=== PATIENT | female | born 1975 | race Native Hawaiian/Other Pacific Islander ===

== ENCOUNTER 2017-09-30 22:42 | Emergency (ER) | payer SELFPAY ==
[~2017-09-30] VITALS: Ht 160 cm; Wt 92.0 kg
[~2017-09-30 22:42] MED LIST: AMOX500T PO; CAPT25TA2 PO; CORTI10A LEFT EAR; DICL75TA PO
[2017-09-30 22:52] VITALS: BP 140/70; PULSE 83; RESP 16; TEMP 99.1; O2SAT 97
--- NOTE | 2017-09-30 23:16 | PD ---
HPI Chief Complaint: ENT Complaint Time Seen by Provider: 23:11 Travel History International Travel<30 days: No Contact w/Intl Traveler<30days: No Traveled to known affect area: No History of Present Illness HPI 42-year-old female presents to emergency department for evaluation of persistent and worsening left ear pain 1 month. Patient was seen and evaluated in August, diagnosed with left ear pain and started on amoxicillin. She states she took this as prescribed but nothing up better. She states the pain is only gotten worse and radiates to her posterior scalp. She states behind her ear is very tender to touch. She also reports that her right ear has begun to be painful. She denies any fever or chills. No cough or other upper respiratory symptoms. Patient states the pain is a 10 out of 10, constant , throbbing. She has no other symptoms to report. PFSH Past Medical History Asthma: Yes Cancer: Yes (FIGO TYPE 2) Diminished Hearing: No Hypertension: Yes ?: Not Past Surgical History Gynecologic Surgery: Yes (complete hysterectomy) Hysterectomy: Yes (2013 FULL) Social History Alcohol Use: No Tobacco Use: Yes Substance Use: No Allergies-Medications (Allergen,Severity, Reaction): Coded Allergies: No Known Allergies (Unverified , 09/30/17) Reported Meds & Prescriptions Reported Meds & Active Scripts Active Augmentin (Amoxicillin-Clavulanate) 875-125 Mg Tab 1 Tab PO BID Diclofenac Sodium DR (Diclofenac Sodium) 75 Mg Tabdr 75 Mg PO BID Gmqzxlbq-Kxwlhwzma-UD Otic Drops (Neomycin/Polymyxin/Hydrocortisone) 1 % Soln 4 Drop LEFT EAR QID Amoxicillin 500 Mg Tab 500 Mg PO TID Review of Systems Except as stated in HPI: all other systems reviewed are Neg Physical Exam Narrative GENERAL: Well-nourished, well-developed male patient in no acute distress. SKIN: Focused skin assessment warm/dry. HEAD: Normocephalic. Tenderness elicited palpation behind the left ear. EARS: Bilateral pinnae and external canals appear within normal limits. The right tympanic membranes without erythema, dullness or perforation. Left tympanic membrane is bulging with a moderate sized purulent effusion. Mild erythema. EYES: No scleral icterus. No injection or drainage. He does have mild drooping of the left superior eyelid. ENT: Mucosa pink and moist. No erythema or exudates. No uvular edema. No uvular , palatal, or tonsillar deviation. Airway patent. Nasal turbinates appear normal without nasal blood, purulent drainage or septal hematoma. NECK: Supple, trachea midline. No JVD or lymphadenopathy. CARDIOVASCULAR: Regular rate and rhythm without murmurs, gallops, or rubs. RESPIRATORY: Breath sounds equal bilaterally. No accessory muscle use. GASTROINTESTINAL: Abdomen soft, non-tender, nondistended. MUSCULOSKELETAL: No cyanosis, or edema. BACK: Nontender without obvious deformity. No CVA tenderness. Data Data Last Documented VS Vital Signs Date Time Temp Pulse Resp B/P (MAP) Pulse Ox O2 Delivery O2 Flow Rate FiO2 10/01/17 00:43 09/30/17 22:52 99.1 83 16 97 Room Air Orders Orders Iv Access Insert/Monitor (09/30/17 23:23) Complete Blood Count With Diff (09/30/17 23:23) Basic Metabolic Panel (Bmp) (09/30/17 23:23) Ketorolac Inj (Toradol Inj) (09/30/17 23:30) Diphenhydramine Inj (Benadryl Inj) (09/30/17 23:30) Metoclopramide Inj (Reglan Inj) (09/30/17 23:30) Sodium Chlor 0.9% 1000 Ml Inj (Ns 1000 M (09/30/17 23:30) Influenzae A/B Antigen (09/30/17 23:23) Ct Brain W/O Iv Contrast(Rout) (09/30/17 ) Ed Discharge Order (10/01/17 00:37) Labs Laboratory Tests Test 09/30/17 23:30 White Blood Count 11.3 TH/MM3 Red Blood Count 4.44 MIL/MM3 Hemoglobin 9.1 GM/DL Hematocrit 29.5 % Mean Corpuscular Volume 66.4 FL Mean Corpuscular Hemoglobin 20.4 PG Mean Corpuscular Hemoglobin Concent 30.7 % Red Cell Distribution Width 18.0 % Platelet Count 508 TH/MM3 Mean Platelet Volume 7.1 FL Neutrophils (%) (Auto) 68.2 % Lymphocytes (%) (Auto) 20.5 % Monocytes (%) (Auto) 9.3 % Eosinophils (%) (Auto) 1.4 % Basophils (%) (Auto) 0.6 % Neutrophils # (Auto) 7.7 TH/MM3 Lymphocytes # (Auto) 2.3 TH/MM3 Monocytes # (Auto) 1.0 TH/MM3 Eosinophils # (Auto) 0.2 TH/MM3 Basophils # (Auto) 0.1 TH/MM3 CBC Comment DIFF FINAL Differential Comment Blood Urea Nitrogen 13 MG/DL Creatinine 0.64 MG/DL Random Glucose 146 MG/DL Calcium Level 8.4 MG/DL Sodium Level 141 MEQ/L Potassium Level 4.1 MEQ/L Chloride Level 106 MEQ/L Carbon Dioxide Level 29.0 MEQ/L Anion Gap 6 MEQ/L Estimat Glomerular Filtration Rate 101 ML/MIN MDM Medical Decision Making Medical Screen Exam Complete: Yes Emergency Medical Condition: Yes Medical Record Reviewed: Yes Differential Diagnosis Otitis media versus otitis externa versus mastoiditis versus allergies versus influenza Narrative Course 42-year-old female presents to the emergency department for evaluation of left ear pain. Patient appears without distress. She has had tenderness to palpation of the posterior left ear. CT imaging of the brain identifies no mastoiditis and no intracranial abnormality. Patient does have a moderate size purulent effusion on the left. She'll be started on Augmentin. I have encouraged follow-up with primary care provider and to seek ear nose and throat evaluation. She verbalizes understanding and will return immediately with any acute worsening of symptoms. Diagnosis Primary Impression: Otitis media follow-up, not resolved Qualified Codes: H66.92 - Otitis media, unspecified, left ear Referrals: Ear / Nose / Throat Specialist Primary Care Physician Patient Instructions: Ear Infection (ED), General Instructions Additional Instructions: Follow-up with her primary care provider Tylenol or ibuprofen as directed on the package as needed for fever and/or pain Return immediately to the emergency department with any acute worsening of symptoms Med/Other Pt SpecificInfo: Prescription(s) given Scripts Amoxicillin-Clavulanate (Augmentin) 875-125 Mg Tab 1 TAB PO BID for Infection, #20 TAB 0 Refills Prov: Maria Luisa Roque 10/01/17 Disposition: 01 DISCHARGE HOME Condition: Stable Maria Luisa Roque Sep 30, 2017 23:16
[2017-09-30] MEDS ORDERED: diphenhydrAMINE HCL 50 MG/ML VIAL IV PUSH ONE (23:30)
[2017-09-30] MEDS ORDERED: KETOROLAC TROMETHAMINE 30 MG/ML (IVP) VIAL IV PUSH ONE (23:30)
[2017-09-30] MEDS ORDERED: METOCLOPRAMIDE HCL 10 MG/2 ML VIAL IV PUSH ONE (23:30)
[2017-09-30] MEDS ORDERED: SODIUM CHLOR 0.9% 1000 ML INJ 1,000 ML IV ONE (23:30)
[2017-09-30 23:54] LABS: CALCIUM 8.4 MG/DL (8.5-10.1); CREATININE 0.64 MG/DL (0.50-1.00)
[2017-09-30 23:56] LABS: AUTOMATED NEUTROPHIL # 7.7 TH/MM3 (1.8-7.7); BASOPHIL # 0.1 TH/MM3 (0-0.2); BASOPHIL % 0.6 % (0.0-2.0); EOSINOPHIL # 0.2 TH/MM3 (0-0.4); EOSINOPHIL % 1.4 % (0.0-4.0); HEMATOCRIT 29.5 % (35.0-46.0); HEMOGLOBIN 9.1 GM/DL (11.6-15.3); LYMPH % 20.5 % (9.0-44.0); LYMPHOCYTE # 2.3 TH/MM3 (1.0-4.8); MEAN CELL VOLUME 66.4 FL (80.0-100.0); MEAN CORPUSCULAR HEMOGLOBIN 20.4 PG (27.0-34.0); MEAN CORPUSCULAR HGB CONC 30.7 % (32.0-36.0); MEAN PLATELET VOLUME 7.1 FL (7.0-11.0); MONO % 9.3 % (0.0-8.0); NEUT % 68.2 % (16.0-70.0); PLATELET COUNT 508 TH/MM3 (150-450); RED BLOOD COUNT 4.44 MIL/MM3 (4.00-5.30); WHITE BLOOD COUNT 11.3 TH/MM3 (4.0-11.0)
--- NOTE | 2017-10-01 00:28 | RADRPT ---
EXAM DATE/TIME: 10/01/2017 00:04 [facility] COMPARISON: No previous studies available for comparison. INDICATIONS : Headaches. Evaluate for mastoiditis. RADIATION DOSE: 34.94 CTDIvol (mGy) MEDICAL HISTORY : None SURGICAL HISTORY : None. ENCOUNTER: Initial ACUITY: 1 day PAIN SCALE: 7/10 LOCATION: Bilateral cranial TECHNIQUE: Multiple contiguous axial images were obtained of the head. Using automated exposure control and adj ustment of the mA and/or kV according to patient size, radiation dose was kept as low as reasonably a chievable to obtain optimal diagnostic quality images. DICOM format image data is available electro nically for review and comparison. FINDINGS: CEREBRUM: The ventricles are normal for age. No evidence of midline shift, mass lesion, hemorrhage or acute in farction. No extra-axial fluid collections are seen. POSTERIOR FOSSA: The cerebellum and brainstem are intact. The 4th ventricle is midline. The cerebellopontine angle i s unremarkable. EXTRACRANIAL: The visualized portion of the orbits is intact. SKULL: The calvaria is intact. No evidence of skull fracture. CONCLUSION: No acute disease. The mastoids are well aerated. Baldomero Cruz MD on October 01, 2017 at 0:24 Board Certified Radiologist. This report was verified electronically.
[2017-10-01] MEDS ORDERED: AUGM875T3 PO (00:39)
[2017-10-07] MEDS ORDERED: CAPT25TA2 PO (17:57)
[2017-10-07] MEDS ORDERED: FAMO1TAB30 PO (18:33)
[2017-10-07] MEDS ORDERED: CEPH-460 PO (19:16)
== END 2017-10-01 01:00 | disposition home or self-care (01) ==
LOC: NEPD 22:42 → MERGE 22:42 → NEPD 10-01 01:00
DX: H66.92 Otitis media, unspecified, left ear (principal); J45.909 Unspecified asthma, uncomplicated; I10 Essential (primary) hypertension; Z72.0 Tobacco use
CPT/HCPCS: 70450; 80048; 85025; 87804; 96361; 96374; 99285; J1200; J7030

== ENCOUNTER 2017-10-07 17:33 | Emergency (ER) | payer SELFPAY ==
[2017-10-07] MEDS: LIDOCAINE VISCOUS 2% SOLN 15 ML UDC SWISH-SWAL (18:27)
[2017-10-07] MEDS: ALUMINUM/MAGNESIUM/SIMETH 30 ML CUP PO (18:40)
[2017-10-07] MEDS: FAMOTIDINE 20 MG TAB PO (18:40)
== END 2017-10-07 20:13 | disposition home or self-care (01) ==
LOC: NEPE 17:33
DX: T36.0X5A Adverse effect of penicillins, initial encounter (principal); R10.9 Unspecified abdominal pain; R07.9 Chest pain, unspecified; H93.19 Tinnitus, unspecified ear; J45.909 Unspecified asthma, uncomplicated; I10 Essential (primary) hypertension; Z87.891 Personal history of nicotine dependence
CPT/HCPCS: 99284

== ENCOUNTER 2018-03-06 21:06 | Emergency (ER) | payer SELFPAY ==
[~2018-03-06] VITALS: Ht 165.1 cm; Wt 92.0 kg
[~2018-03-06 21:06] MED LIST changes: -AMOX500T PO; +AUGM875T3 PO; +CEPH-460 PO; -CORTI10A LEFT EAR; -DICL75TA PO; +FAMO1TAB30 PO
[2018-03-06 21:33] VITALS: BP 143/96; PULSE 100; RESP 16; TEMP 99.2; O2SAT 98
--- NOTE | 2018-03-06 22:00 | PD ---
HPI Chief Complaint: Headache Time Seen by Provider: 21:58 Travel History International Travel<30 days: No Contact w/Intl Traveler<30days: No Traveled to known affect area: No History of Present Illness HPI Patient comes in, complaining of left-sided headache, 5 out of 10 in intensity, sometimes throbbing or sharp in nature. Nonradiating and associated with left ear fullness and sometimes pain.... Patient denies any alleviating or aggravating factors. Patient denies any associated factors such as neck stiffness, no rash, no fever No nondrug allergies Past medical history significant for hypertension, asthma, complete hysterectomy , quit smoking cigarettes in 2016 [facility] Past Medical History Asthma: Yes Cancer: Yes (FIGO TYPE 2) Cardiovascular Problems: Yes (HTN) Diminished Hearing: No Hypertension: Yes Respiratory: Yes (Asthma) ?: Not Tubal Ligation: Yes Past Surgical History Gynecologic Surgery: Yes (complete hysterectomy) Hysterectomy: Yes Social History Alcohol Use: No Tobacco Use: Yes (july 2017 quit) Substance Use: No Allergies-Medications (Allergen,Severity, Reaction): Coded Allergies: No Known Allergies (Unverified , 08/24/16) Reported Meds & Prescriptions Reported Meds & Active Scripts Active Reported Captopril 25 Mg Tab 25 Mg PO TIDAC Take 1 hr before meals. Review of Systems General / Constitutional: No: Fever Eyes: No: Visual changes HENT: Positive: Headaches, Earache Cardiovascular: No: Chest Pain or Discomfort Respiratory: No: Shortness of Breath Gastrointestinal: No: Abdominal Pain Genitourinary: No: Dysuria Musculoskeletal: No: Pain Skin: No Rash Neurologic: No: Weakness Psychiatric: No: Depression Endocrine: No: Polydipsia Hematologic/Lymphatic: No: Easy Bruising Physical Exam Narrative GENERAL: SKIN: Warm and dry. HEAD: Atraumatic. Normocephalic. EYES: Pupils equal and round. No scleral icterus. No injection or drainage. ENT: No nasal bleeding or discharge. Mucous membranes pink and moist. Left TM is edematous/erythematous/bulging with loss of right reflex, normal external auditory canal. Tenderness to percussion over mid forehead NECK: Trachea midline. No JVD. CARDIOVASCULAR: Regular rate and rhythm. RESPIRATORY: No accessory muscle use. Clear to auscultation. Breath sounds equal bilaterally. GASTROINTESTINAL: Abdomen soft, non-tender, nondistended. MUSCULOSKELETAL: Extremities without clubbing, cyanosis, or edema. No obvious deformities. NEUROLOGICAL: Awake and alert. No obvious cranial nerve deficits. Motor grossly within normal limits. Five out of 5 muscle strength in the arms and legs. Normal speech. PSYCHIATRIC: Appropriate mood and affect; insight and judgment normal. Data Data Last Documented VS Vital Signs Date Time Temp Pulse Resp B/P (MAP) Pulse Ox O2 Delivery O2 Flow Rate FiO2 03/06/18 22:09 87 16 124/68 (86) 98 Room Air 03/06/18 21:[address] Brain W/O Iv Contrast(Rout) (03/06/18 22:18) Amoxicil-Clavulanate (Augmentin) (03/07/18 00:00) MDM Medical Decision Making Medical Screen Exam Complete: Yes Emergency Medical Condition: Yes Medical Record Reviewed: Yes Differential Diagnosis Intra-cranial hemorrhage versus sinusitis versus tension headache Narrative Course CT negative for intracranial hemorrhage Diagnosis Primary Impression: Left otitis media Patient Instructions: Ear Infection (ED), General Instructions, Sinusitis (GEN) Scripts Amoxicillin-Clavulanate (Augmentin) 875-125 Mg Tab 1 TAB PO BID for Infection for 10 Days, #20 TAB 0 Refills Prov: iMc Baker MD 03/06/18 Disposition: 01 DISCHARGE HOME Condition: Stable Mic Baker MD Mar 06, 2018 22:00
[2018-03-06 22:09] VITALS: BP 124/68; PULSE 87; RESP 16; O2SAT 98
--- NOTE | 2018-03-06 23:34 | RADRPT ---
EXAM DATE: 03/06/2018 11:21 PM EDT AGE/SEX: 43 years / Female INDICATIONS: Cephalgia. CLINICAL DATA: This is the patient's initial encounter. Patient reports that signs and symptoms have been present for 1 month and indicates a pain score of 10/10. MEDICAL/SURGICAL HISTORY: Hypertension. Hysterectomy. RADIATION DOSE: 56.35 CTDI (mGy) COMPARISON: [facility] [place] BRAIN [place]/O CONTRAST, 10/01/2017. . TECHNIQUE: CT of the head without contrast. Using automated exposure control and adjustment of the mA and/or kV according to patient size, radiation dose was kept as low as reasonably achievable to ob tain optimal diagnostic quality images. DICOM format image data is available electronically for revi ew and comparison. FINDINGS: Cerebrum: The ventricles are normal for age. No evidence of midline shift, mass lesion, hemorrhage or acute infarction. No extraaxial fluid collections are seen. Posterior Fossa: The cerebellum and brainstem are intact. The 4th ventricle is midline. The cerebe llopontine angle is unremarkable. Extracranial: The visualized portion of the orbits is intact. Skull: The calvaria is intact. No evidence of skull fracture. CONCLUSION: 1. Negative CT Head non contrast. Electronically signed by: Dylan Figueredo MD 03/06/2018 11:32 PM EDT
[2018-03-06] MEDS ORDERED: AUGM875T3 PO (23:50)
[2018-03-07] MEDS ORDERED: AMOXICILLIN/CLAVULANATE K 875 MG TAB PO ONE
[2018-03-07] MEDS ORDERED: traMADol HCL 50 MG TAB PO ONE (00:15)
[2018-03-07] MEDS ORDERED: CELE1CAP6 PO (00:22)
== END 2018-03-07 00:41 | disposition home or self-care (01) ==
LOC: NEPC 21:06
DX: H66.92 Otitis media, unspecified, left ear (principal); R51 Headache; I10 Essential (primary) hypertension; J45.909 Unspecified asthma, uncomplicated; Z87.891 Personal history of nicotine dependence
CPT/HCPCS: 70450; 99283

== ENCOUNTER 2018-04-24 01:05 | Observation (INO) ==
[2018-04-24 04:36] LABS: Alanine Aminotransferase 13 U/L (10-53); Albumin 2.2 g/dL (3.4-5.0); Anion Gap 6 meq/L (5-15); Aspartate Aminotransferase 6 U/L (15-37); Blood Urea Nitrogen 11 mg/dL (7-18); Calcium 8.5 mg/dL (8.5-10.1); Carbon Dioxide 29.3 meq/L (21.0-32.0); Chloride 104 meq/L (98-107); Glomerular Filtration Rate Greater Than 89 mL/min (>89); Glucose,Random 141 mg/dL (74-106); Sodium 139 meq/L (136-145)
[2018-04-24 04:39] LABS: Alkaline Phosphatase 116 U/L (45-117); Total Protein 7.6 g/dL (6.4-8.2)
[2018-04-24 04:46] LABS: Hematocrit 21.4 % (35.0-46.0); Hemoglobin 6.1 gm/dL (11.6-15.3); Mean Corpuscular Hemoglobin 17.9 pg (27.0-34.0); Mean Corpuscular Volume 62.8 fL (80.0-100.0); Mean Platelet Volume 6.9 fL (7.0-11.0); Platelet Count 532 th/mm3 (150-450); Red Cell Distribution Width 20.9 % (11.6-17.2); White Blood Count 11.3 th/mm3 (4.0-11.0)
[2018-04-24 04:50] LABS: Mean Corpuscular HGB Conc 28.6 % (32.0-36.0)
--- NOTE | 2018-04-24 05:19 | ED ---
HPI General Chief complaint: Head Injury Stated complaint: Ear Pain/Head Pain Time Seen by Provider: 04/24/18 04:51 Source: patient Mode of arrival: ambulatory Limitations: no limitations History of Present Illness HPI narrative: 43-year-old female presents emergency department for evaluation of bilateral ear pain, headache, shortness of breath and fatigue. Patient states that she has had a history of hypertension, uterine cancer with hysterectomy, and anemia in the past. She had been recently seen by ENT who performed direct visualization of her sinuses and told her he did not see anything. She followed up here in the ER had a CAT scan done and was diagnosed with otitis media and sinusitis and placed on a course of antibiotics. She states that she does not feel significantly improved. She states that she stopped taking her captopril because she felt her blood pressure is better. She also was on iron but has not taken it in over a year. She states that she has had subjective fever at home, persistent headache and ear pain. She denies any chest pain. No cough or sputum production. No nausea vomiting. No abdominal pain or diarrhea. She denies any dysuria, vaginal discharge or abnormal vaginal bleeding. No rectal bleeding. Related Data Home Medications Medication Instructions Recorded Confirmed captopril 25 mg PO BID 04/06/18 04/06/18 Allergies Allergy/AdvReac Type Severity Reaction Status Date / Time No Known Allergies Allergy Verified 04/24/18 01:14 Review of Systems ROS: all other systems reviewed are negative [facility] Medical History Medical History H/O: hysterectomy (Acute) HTN (hypertension) (Acute) Uterine cancer (Acute) Social History Social History Substance History: No History of Abuse Second Hand Smoke Exposure: No Smoking Status: Never smoker How Often Do You Have a Drink Containing Alcohol: Never Immunization History Tetanus Immunization: Unsure Hx Influenza Vaccine This Season: No Exam Narrative Exam Narrative: GENERAL: Well-developed, well-nourished in no apparent distress. Nontoxic appearing. HEAD: Normocephalic, atraumatic. EYES: Pupils equal round and reactive. Extraocular motions intact. No scleral icterus. No injection or drainage. ENT: Nose clear. Throat without erythema, tonsillar hypertrophy or exudate. Uvula midline. Airway patent. NECK: Trachea midline. Supple, nontender, moves head freely. No central bony tenderness or spasm. CARDIOVASCULAR: Regular rate and rhythm without murmurs, gallops, or rubs. RESPIRATORY: Clear to auscultation. Breath sounds equal bilaterally. No wheezes , rales, or rhonchi. GASTROINTESTINAL: Abdomen soft, non-tender, nondistended. No hepato-splenomegaly , or palpable masses. No guarding. EXTREMITIES: No clubbing, cyanosis, or edema. No joint tenderness. BACK: Nontender without deformity. No flank tenderness. NEUROLOGICAL: Awake, alert and oriented x 3 .Cranial nerves grossly intact. Motor and sensory grossly within normal limits. Normal speech. Rectal: Negative for blood. Positive external hemorrhoid without active bleeding. Patient's exam performed in the presence of Nga the nurse. Course Initial Documented Vital Signs Temperature 98.5 F 04/24/18 01:14 Pulse Rate 114 H 04/24/18 01:14 Respiratory Rate 18 04/24/18 01:14 Blood Pressure 133/58 L 04/24/18 01:14 Pulse Oximetry 99 04/24/18 01:14 Last Documented Vital Signs Temperature 98.5 F 04/24/18 01:14 Pulse Rate 114 H 04/24/18 01:14 Respiratory Rate 18 04/24/18 01:14 Blood Pressure 133/58 L 04/24/18 01:14 Pulse Oximetry 99 04/24/18 01:14 Medical Decision Making MDM Narrative Medical decision making narrative: Routine laboratory tests including CBC, chemistry, chest x-ray, type and screen have been performed. Patient's CBC reveals a hemoglobin of 6.1. This is a drop of 3 g of hemoglobin in the last several months. We will type and cross for 2 units due to her subjective shortness of breath, dizziness and weakness. I see no evidence of hemorrhage. I suspect this is secondary to her chronic anemia and not compliant with her iron pills. I discussed the case with Dr. Galan who is agreed to place the patient on observation status for her blood transfusion for her symptomatic anemia. I do not see any other indication for testing today. I reviewed her prior CAT scan shows no acute intracranial process from her last ER visit. Differential Diagnosis Differential Diagnosis: Otitis media, sinusitis, pneumonia, electrolyte abnormality, anemia, GI bleed Lab Data Result diagrams: 04/24/18 03:50 04/24/18 03:50 Lab Results 04/24/18 04/24/18 Range/Units 03:50 03:50 WBC 11.3 H (4.0-11.0) th/mm3 RBC 3.40 L (4.00-5.30) mil/mm3 Hgb 6.1 L* (11.6-15.3) gm/dL Hct 21.4 L (35.0-46.0) % MCV 62.8 L (80.0-100.0) fL MCH 17.9 L (27.0-34.0) pg MCHC 28.6 L (32.0-36.0) % RDW 20.9 H (11.6-17.2) % Plt Count 532 H (150-450) th/mm3 MPV 6.9 L (7.0-11.0) fL Sodium 139 (136-145) meq/L Potassium 4.0 (3.5-5.1) meq/L Chloride 104 (98-107) meq/L Carbon Dioxide 29.3 (21.0-32.0) meq/L Anion Gap 6 (5-15) meq/L BUN 11 (7-18) mg/dL Creatinine 0.63 (0.50-1.00) mg/dL Estimated GFR Greater than 89 (>89) mL/min Random Glucose 141 H (74-106) mg/dL Calcium 8.5 (8.5-10.1) mg/dL Total Bilirubin 0.4 (0.2-1.0) mg/dL AST 6 L (15-37) U/L ALT 13 (10-53) U/L Alkaline Phosphatase 116 (45-117) U/L Total Protein 7.6 (6.4-8.2) g/dL Albumin 2.2 L (3.4-5.0) g/dL Imaging Data Radiologist's impression: Chest X-Ray 04/24/18 00:00 CONCLUSION: Negative examination. Discharge Plan Discharge Disposition Patient Disposition: 30 Still Patient Discharge Condition Condition: Stable Physicians Team ED Provider: Monik Montesinos ED Midlevel Provider: Martin Borrero Primary Care Provider: Primary Care Samantha Church Rxs /Orders / Referrals /Forms Prescriptions: No Action captopril 25 mg Tablet 25 mg PO BID RF: 0 Status ED Status: With Doctor
--- NOTE | 2018-04-24 05:44 | XR ---
EXAM DATE: 04/24/2018 5:05 AM EDT AGE/SEX: 43 years / Female INDICATIONS: Shortness of breath. CLINICAL DATA: This is the patient's initial encounter. Patient reports that signs and symptoms have been present for 1 day and indicates a pain score of 0/10. MEDICAL/SURGICAL HISTORY: Hypertension. None. COMPARISON: [facility] [place], CHEST SINGLE AP, 08/24/2016. . FINDINGS: A single AP view of the chest demonstrates the lungs to be symmetrically aerated without evidence of mass, infiltrate or effusion. The cardiomediastinal contours are unremarkable. Osseous structures a re intact. CONCLUSION: Negative examination. Electronically signed by: Michael Kirby MD 04/24/2018 5:43 AM EDT
[2018-04-24] MEDS ORDERED: Acetaminophen 325 MG Tablet PO PRN (05:57)
[2018-04-24] MEDS ORDERED: Temazepam 15 MG Capsule PO PRN (05:57)
[2018-04-24] MEDS ORDERED: Bisacodyl 10 MG Supp RECTAL PRN (05:57)
[2018-04-24] MEDS ORDERED: Sodium Chlor 0.9% Inj 250 ML IV.SIG SCH ×2 (06:00→09:00)
[2018-04-24 09:54] LABS: Hematocrit 22.4 % (35.0-46.0)
[2018-04-24 10:09] LABS: Hemoglobin 6.6 gm/dL (11.6-15.3)
[2018-04-24] MEDS: Senna/Docusate Sodium 8.6/50 MG Tablet PO SCH ×2 (11:42→21:34)
[2018-04-24] MEDS: Acetaminophen 500 MG Tablet PO PRN (15:35)
--- NOTE | 2018-04-24 16:24 | P.HPIM ---
History of Present Illness Primary Care Physician: No Primary Care Physician Chief Complaint: shortness of breath History of Present Illness: This is a 43-year-old female with history of hypertension and uterine cancer presenting with headache, shortness of breath and fatigue. She is also complaining of bilateral ear pain. She has seen an ENT recently, status post direct visualization of her sinuses and told her that it was normal. She was then diagnosed with otitis media and sinusitis and placed on antibiotics without any improvement. She is also supposed to be on iron but has not been taking it. She also stopped taking her captopril for blood pressure. She says she just does not like taking any medications. She presented today after 1 month of progressive shortness of breath but it became so worse a day that she needed to go to the emergency department. She denies any nausea, vomiting, abdominal pain, hematochezia, melena or any bleeding episodes. She has uterine cancer status post hysterectomy and has been stable. Of note, she had a colonoscopy in 2014 and was allegedly normal. She does not take any over-the- counter NSAIDs. Family history is prominent for anemia of unknown etiology to her. Review of Systems All other pertinent systems were reviewed and are negative. FORMERLY [facility], [facility] - History History Provided By: Patient - Medical History Medical History: Medical History (Last Reviewed 04/24/18 @ 05:18 by JADIEL Adams) H/O: hysterectomy HTN (hypertension) Uterine cancer - Tobacco History Second Hand Smoke Exposure: No Smoking Status: Never smoker - Alcohol History How Often Do You Have a Drink Containing Alcohol: Never - Substance Use History Substance History: No History of Abuse - Immunization History Tetanus Immunization: Unsure Hx Influenza Vaccine This Season: No Medications and Allergies Active Medications: Active Medications Acetaminophen (Tylenol) 650 mg PO Q4H PRN PRN Reason: Temp > 100.4 Acetaminophen (Tylenol) 500 mg PO Q6H PRN PRN Reason: pain 1-10/fever Last Admin: 04/24/18 15:35 Dose: 500 mg Al Hydroxide/Mg Hydroxide (Milk Of Magnpallavi Liq) 30 ml PO Q12H PRN PRN Reason: Mild Constipation Bisacodyl (Dulcolax Supp) 10 mg RECTAL DAILY PRN PRN Reason: SEVERE CONSITIPATION Sodium Chloride (Ns Inj) 250 mls @ 15 mls/hr IV.SIG ONCE JAIRON Stop: 04/24/18 22:39 Last Admin: 04/24/18 09:44 Dose: Not Given Sodium Chloride (Ns Inj) 250 mls @ 15 mls/hr IV.SIG ONCE JAIRON Stop: 04/25/18 01:39 Last Admin: 04/24/18 09:44 Dose: 15 mls/hr Lactulose (Lactulose Liq) 30 ml PO DAILY PRN PRN Reason: SEVERE CONSITIPATION Ondansetron HCl (Zofran Inj) 4 mg IV.PUSH Q6H PRN PRN Reason: NAUSEA OR VOMITING Senna/Docusate Sodium (Nicole-Colace) 1 tab PO BID JAIRON Last Admin: 04/24/18 11:42 Dose: Not Given Sennosides (Senokot) 17.2 mg PO Q12H PRN PRN Reason: Moderate Constipation Temazepam (Restoril) 15 mg PO HS PRN PRN Reason: INSOMNIA Allergies Allergy/AdvReac Type Severity Reaction Status Date / Time No Known Allergies Allergy Verified 04/24/18 01:14 Home Medications Medication Instructions Recorded Confirmed Type captopril 25 mg PO BID 04/06/18 04/24/18 History Exam Vital signs: Vital Signs 04/24/18 01:14 04/24/18 07:11 04/24/18 09:32 Temperature 98.5 F 99.4 F 98.9 F Pulse Rate 114 H 93 H 90 Respiratory Rate 18 17 17 Blood Pressure 133/58 L 109/65 112/61 Pulse Oximetry 99 98 99 04/24/18 09:40 04/24/18 09:47 04/24/18 12:47 Temperature 98.5 F 99.1 F Pulse Rate 90 90 Respiratory Rate 16 17 Blood Pressure 112/61 130/77 Pulse Oximetry 100 100 100 04/24/18 13:24 04/24/18 13:44 Temperature 100.4 F H 100.4 F H Pulse Rate 99 H 100 H Respiratory Rate 19 17 Blood Pressure 112/67 109/64 Pulse Oximetry 100 100 Intake & Output 04/23/18 04/24/18 04/24/18 18:59 06:59 18:59 Intake Total 400 / 400 Balance 400 / 400 Weight 90 kg Intake: Intake (Blood Product) Amt 400 / 400 Rbc As-3 Leukoreduced Unit 0 / 0 [id number] Rbc As-3 Leukoreduced Unit 400 / 400 [id number] Narrative: Not in distress, well-nourished, looks stated age PERRL, pale conjunctivae, dry oral mucosa. Nose without bleeding, airway patent, oropharynx clear Supple neck Borderline tachycardic, regular rhythm, no murmurs. Clear to auscultation and symmetric bilaterally, normal respiratory effort. Normal bowel sounds, soft, non-tender, nondistended, no guarding. Extremities without clubbing, cyanosis, or edema. No rash of generalized distribution. Skin is warm and dry. AAO x3, no cranial nerve deficits, moves all 4 extremities, no focal neurologic deficits Results - Labs CBC & Chem 7: 04/24/18 08:26 04/24/18 03:50 Labs: Short CBC 04/24/18 04/24/18 Range/Units 03:50 08:26 WBC 11.3 H (4.0-11.0) th/mm3 Hgb 6.1 L* 6.6 L* (11.6-15.3) gm/dL Hct 21.4 L 22.4 L (35.0-46.0) % Plt Count 532 H (150-450) th/mm3 BMP 04/24/18 03:50 Sodium 139 Potassium 4.0 Chloride 104 Carbon Dioxide 29.3 BUN 11 Creatinine 0.63 Calcium 8.5 Liver Function 04/24/18 Range/Units 03:50 Total Bilirubin 0.4 (0.2-1.0) mg/dL AST 6 L (15-37) U/L ALT 13 (10-53) U/L Alkaline Phosphatase 116 (45-117) U/L Albumin 2.2 L (3.4-5.0) g/dL - Imaging Impressions Chest X-Ray 04/24/18 00:00 CONCLUSION: Negative examination. Caprini VTE Risk Assessment Caprini VTE Risk Assessment: Moderate/High Risk (score >= 2) VTE Pharmacological Exception Reason: Hemorrhage Caprini Risk Assessment Model: Point Value = 1 Point Value = 2 Point Value = 3 Point Value = 5 Age 41-60 Minor surgery BMI > 25 kg/m2 Swollen legs Varicose veins or History of unexplained or recurrent spontaneous Oral contraceptives or hormone replacement Sepsis (< 1 month) Serious lung disease, including pneumonia (< 1 month) Abnormal pulmonary function Acute myocardial infarction Congestive heart failure (< 1 month) History of inflammatory bowel disease Medical patient at bed rest Age 61-74 Arthroscopic surgery Major open surgery (> 45 min) Laparoscopic surgery (> 45 min) Malignancy Confined to bed (> 72 hours) Immobilizing plaster cast Central venous access Age >= 75 History of VTE Family history of VTE Factor V Leiden Prothrombin [id number] Lupus anticoagulant Anticardiolipin antibodies Elevated serum homocysteine Heparin-induced thrombocytopenia Other congenital or acquired thrombophilia Stroke (< 1 month) Elective arthroplasty Hip, pelvis, or leg fracture Acute spinal cord injury (< 1 month) Prophylaxis Regimen: Total Risk Factor Score Risk Level Prophylaxis Regimen 0-1 Low Early ambulation 2 Moderate Order ONE of the following: *Sequential Compression Device (SCD) *Heparin 5000 units SQ BID 3-4 Higher Order ONE of the following medications: *Heparin 5000 units SQ TID *Enoxaparin/Lovenox 40 mg SQ daily (WT < 150 kg, CrCl > 30 mL/min) *Enoxaparin/Lovenox 30 mg SQ daily (WT < 150 kg, CrCl > 10-29 mL/min) *Enoxaparin/Lovenox 30 mg SQ BID (WT < 150 kg, CrCl > 30 mL/min) AND/OR *Sequential Compression Device (SCD) 5 or more Highest Order ONE of the following medications: *Heparin 5000 units SQ TID (Preferred with Epidurals) *Enoxaparin/Lovenox 40 mg SQ daily (WT < 150 kg, CrCl > 30 mL/min) *Enoxaparin/Lovenox 30 mg SQ daily (WT < 150 kg, CrCl > 10-29 mL/min) *Enoxaparin/Lovenox 30 mg SQ BID (WT < 150 kg, CrCl > 30 mL/min) AND *Sequential Compression Device (SCD) Assessment and Plan - Plan This is a 43-year-old female with history of hypertension, anemia and uterine cancer presenting with shortness of breath Shortness of breath likely secondary to anemia-hemoglobin 6.1 and admission, transfuse 2 units, check hemoglobin every 12 hours, no active bleeding, no etiology. MCV 62.8, likely secondary to iron deficiency anemia, check iron panel, folic acid, vitamin B12. Rectal exam done in the ED negative for blood. If negative with no active bleeding, may follow up with GI as outpatient. Hypertension-controlled, hold off on captopril Uterine cancer-remission, status post hysterectomy DVT prophylaxis: Pharmacological prophylaxis contraindicated because of possible GI bleeding.
[2018-04-24 20:13] LABS: % Iron Saturation 8.1 % (20-50)
[2018-04-24 20:38] LABS: Folate 11.5 ng/mL (3.1-17.5)
[2018-04-25] MEDS: Acetaminophen 500 MG Tablet PO PRN ×3 (00:38→22:57)
[2018-04-25 08:05] LABS: Baso % (Auto) 0.4 % (0.0-2.0); Eos # (Auto) 0.1 th/mm3 (0.0-0.4); Eos % (Auto) 1.4 % (0.0-4.0); Hematocrit 25.3 % (35.0-46.0); Hemoglobin 7.8 gm/dL (11.6-15.3); Lymph # (Auto) 1.7 th/mm3 (1.0-4.8); Lymph % (Auto) 18.2 % (9.0-44.0); Mean Corpuscular Hemoglobin 20.4 pg (27.0-34.0); Mean Corpuscular Volume 66.3 fL (80.0-100.0); Mono # (Auto) 1.2 th/mm3 (0.0-0.9); Mono % (Auto) 13.2 % (0.0-8.0); Neut # (Auto) 6.1 th/mm3 (1.8-7.7); Neut % (Auto) 66.8 % (16.0-70.0); Platelet Count 464 th/mm3 (150-450); Red Blood Count 3.81 mil/mm3 (4.00-5.30); Red Cell Distribution Width 24.3 % (11.6-17.2); White Blood Count 9.1 th/mm3 (4.0-11.0)
[2018-04-25 08:15] LABS: Mean Corpuscular HGB Conc 30.9 % (32.0-36.0)
[2018-04-25 08:23] LABS: Anion Gap 7 meq/L (5-15); Blood Urea Nitrogen 11 mg/dL (7-18); Calcium 8.6 mg/dL (8.5-10.1); Carbon Dioxide 28.6 meq/L (21.0-32.0); Chloride 105 meq/L (98-107); Glomerular Filtration Rate Greater Than 89 mL/min (>89); Glucose,Random 116 mg/dL (74-106); Potassium 3.9 meq/L (3.5-5.1); Sodium 141 meq/L (136-145)
[2018-04-25] MEDS: Senna/Docusate Sodium 8.6/50 MG Tablet PO SCH ×2 (11:51→21:45)
--- NOTE | 2018-04-25 13:06 | P.PNIM ---
Subjective Interval history: Had an episode of dizziness this morning when going to associated from a recumbent position. No nausea or vomiting. Still feels very weak but stronger. Also complaining of bilateral ear pain, status post multiple oral antibiotics in the past. Physical Exam Vital signs: Vital Signs 04/24/18 13:24 04/24/18 13:44 04/24/18 16:46 Temperature 100.4 F H 100.4 F H 100.4 F H Pulse Rate 99 H 100 H 99 H Respiratory Rate 19 17 16 Blood Pressure 112/67 109/64 121/63 Pulse Oximetry 100 100 99 04/24/18 18:04 04/24/18 20:00 04/24/18 23:48 Temperature 100.0 F H 99.3 F 98.4 F Pulse Rate 85 85 84 Respiratory Rate 16 16 16 Blood Pressure 108/59 L 115/55 L 108/54 L Pulse Oximetry 97 99 98 04/25/18 07:52 04/25/18 11:59 Temperature 99.4 F Pulse Rate 75 88 Respiratory Rate 16 Blood Pressure 118/58 L Pulse Oximetry 96 Intake & Output 04/24/18 04/25/18 04/25/18 18:59 06:59 18:59 Intake Total 800 / 800 730 / 730 Balance 800 / 800 730 / 730 Weight 90 kg Intake: IV 250 / 250 NS Inj 250 ML @ 15 mls/hr IV. 250 / 250 SIG ONCE JAIRON Rx#:[id number] Oral 480 / 480 Intake (Blood Product) Amt 800 / 800 Rbc As-3 Leukoreduced Unit 400 / 400 [id number] Rbc As-3 Leukoreduced Unit 400 / 400 [id number] Other: # Voids 2 Date of Last Bowel Movement 04/23/18 Weight On Admission 90 kg Narrative: Not in distress, well-nourished, looks stated age PERRL, pale conjunctivae, dry oral mucosa. B ears, (+tenderness with manipulation of the tragus, (+) COL, (+) yellowish middle ear effusion Nose without bleeding, airway patent, oropharynx clear Supple neck Borderline tachycardic, regular rhythm, no murmurs. Clear to auscultation and symmetric bilaterally, normal respiratory effort. Normal bowel sounds, soft, non-tender, nondistended, no guarding. Extremities without clubbing, cyanosis, or edema. No rash of generalized distribution. Skin is warm and dry. AAO x3, no cranial nerve deficits, moves all 4 extremities, no focal neurologic deficits Results - Labs CBC & Chem 7: 04/25/18 06:00 04/25/18 06:00 Laboratory Results - last 24 hr 04/24/18 04/24/18 04/25/18 03:50 08:33 06:00 WBC 9.1 RBC 3.81 L Hgb 7.8 L Hct 25.3 L MCV 66.3 L D MCH 20.4 L MCHC 30.9 L RDW 24.3 H D Plt Count 464 H MPV 7.0 Neut % (Auto) 66.8 Lymph % (Auto) 18.2 [place] % (Auto) 13.2 H Eos % (Auto) 1.4 Baso % (Auto) 0.4 Neut # (Auto) 6.1 Lymph # (Auto) 1.7 Greenlee # (Auto) 1.2 H Eos # (Auto) 0.1 Baso # (Auto) 0.0 WBC Differential . Differential Comment Auto diff final Sodium Potassium Chloride Carbon Dioxide Anion Gap BUN Creatinine Estimated GFR POC Glucose Random Glucose Calcium Iron 16 L TIBC 197 L % Saturation 8.1 L Vitamin B12 211 Folate 11.5 MTS Gel Crossmatch See Detail 04/25/18 04/25/18 06:00 12:04 WBC RBC Hgb Hct MCV MCH MCHC RDW Plt Count MPV Neut % (Auto) Lymph % (Auto) Greenlee % (Auto) Eos % (Auto) Baso % (Auto) Neut # (Auto) Lymph # (Auto) Greenlee # (Auto) Eos # (Auto) Baso # (Auto) WBC Differential Differential Comment Sodium 141 Potassium 3.9 Chloride 105 Carbon Dioxide 28.6 Anion Gap 7 BUN 11 Creatinine 0.58 Estimated GFR Greater than 89 POC Glucose 144 H Random Glucose 116 H Calcium 8.6 Iron TIBC % Saturation Vitamin B12 Folate MTS Gel Crossmatch Assessment and Plan - Plan This is a 43-year-old female with history of hypertension, anemia and uterine cancer presenting with shortness of breath Shortness of breath likely secondary to anemia-hemoglobin 6.1 and admission, transfused 2 units, hemoglobin 7.8 the patient still symptomatic and had dizziness or lightheadedness. Orthostatic check, negative. Iron panel showed iron deficiency anemia. Transfuse 1 more unit, start iron sucrose for 3 days. Rectal exam done negative, check occult blood in the sto If negative with no active bleeding, may follow up with GI as outpatient. Hypertension-controlled, hold off on captopril Uterine cancer- in remission, status post hysterectomy Bilateral otitis media and sinusitis-start ciprofloxacin orally and ciprofloxacin otic drops, also start oxymetazoline and Flonase. Patient has used augmentin, amoxicillin and <?> clindamycin in the past w/o relief. She used to take cipro and it works. Allegedly, she also had imaging showing otitis media and sinusitis. DVT prophylaxis: Pharmacological prophylaxis contraindicated because of possible GI bleeding.
[2018-04-25] MEDS ORDERED: Ciprofloxacin 0.3% Opth Drops 2.5 ML Bottle RIGHT EAR SCH (14:00)
[2018-04-25] MEDS ORDERED: Ciprofloxacin 0.3% Opth Drops 5 ML Bottle LEFT EAR SCH (14:00)
[2018-04-25] MEDS ORDERED: Sodium Chlor 0.9% Inj 250 ML IV.SIG SCH (14:00)
[2018-04-25] MEDS: Iron Sucrose Inj 200 MG in Sodium Chlor 0.9% Inj 100 ML IV.SIG SCH (15:05)
[2018-04-25] MEDS: OFLOXACIN 0.3% EACH EAR SCH ×2 (21:44→21:45)
[2018-04-25] MEDS: Ciprofloxacin 500 MG Tablet PO SCH (21:45)
[2018-04-26] MEDS: Ciprofloxacin 500 MG Tablet PO SCH ×2 (09:54→21:44)
[2018-04-26] MEDS: OFLOXACIN 0.3% EACH EAR SCH ×4 (09:54→21:44)
[2018-04-26] MEDS: Senna/Docusate Sodium 8.6/50 MG Tablet PO SCH ×2 (09:55→21:43)
[2018-04-26] MEDS: Iron Sucrose Inj 200 MG in Sodium Chlor 0.9% Inj 100 ML IV.SIG SCH ×2 (11:27→15:10)
--- NOTE | 2018-04-26 13:05 | P.PNIM ---
Subjective Interval history: This is a 43-year-old female with history of hypertension and uterine cancer presenting with headache, shortness of breath and fatigue. She is also complaining of bilateral ear pain. She has seen an ENT recently, status post direct visualization of her sinuses and told her that it was normal. She was then diagnosed with otitis media and sinusitis and placed on antibiotics without any improvement. She is also supposed to be on iron but has not been taking it. She also stopped taking her captopril for blood pressure. She says she just does not like taking any medications. She presented today after 1 month of progressive shortness of breath but it became so worse a day that she needed to go to the emergency department. She denies any nausea, vomiting, abdominal pain, hematochezia, melena or any bleeding episodes. She has uterine cancer status post hysterectomy and has been stable. Of note, she had a colonoscopy in 2014 and was allegedly normal. She does not take any over-the- counter NSAIDs. 8-9 Had an episode of dizziness this morning when going to associated from a recumbent position. No nausea or vomiting. Still feels very weak but stronger. Also complaining of bilateral ear pain, status post multiple oral antibiotics in the past. 8-10 CONTINUE ON IRON AND ANTIBIOTICS Physical Exam Vital signs: Vital Signs 04/25/18 15:44 04/25/18 17:02 04/25/18 17:21 Temperature 100.0 F H 98.7 F 98.7 F Pulse Rate 90 90 89 Respiratory Rate 16 18 18 Blood Pressure 123/81 104/71 127/78 Pulse Oximetry 97 97 04/25/18 20:00 04/25/18 22:20 04/25/18 22:52 Temperature 99.2 F 99.8 F H Pulse Rate 86 87 84 Respiratory Rate 18 18 Blood Pressure 115/75 113/76 Pulse Oximetry 97 98 04/25/18 22:59 04/25/18 23:16 04/25/18 23:55 Temperature 99.8 F H 98.7 F 98.9 F Pulse Rate 81 82 80 Respiratory Rate 18 16 18 Blood Pressure 113/76 112/72 125/75 Pulse Oximetry 96 97 96 04/26/18 02:40 04/26/18 04:05 Temperature 98.6 F Pulse Rate 80 Respiratory Rate 18 18 Blood Pressure 122/72 Pulse Oximetry 98 Intake & Output 04/25/18 04/26/18 04/26/18 18:59 06:59 18:59 Intake Total 0 / 0 1335 / 1335 250 / 250 Output Total 0 / 0 Balance 0 / 0 1335 / 1335 250 / 250 Weight 90 kg Intake: IV 110 / 110 250 / 250 Venofer Inj 200 MG In NS Inj 110 / 110 100 ML @ 110 mls/hr IV.SIG DAILY JAIRON Rx#:[id number] NS Inj 250 ML @ 15 mls/hr IV. 250 / 250 SIG ONCE JAIRON Rx#:[id number] Oral 425 / 425 Intake (Blood Product) Amt 0 / 0 800 / 800 Rbc As-3 Leukoreduced Unit 400 / 400 [id number] Rbc As-3 Leukoreduced Unit 0 / 0 400 / 400 [id number] Output: Urine 0 / 0 Other: # Voids 3 0 Date of Last Bowel Movement 04/25/18 Narrative: Not in distress, well-nourished, looks stated age PERRL, pale conjunctivae, dry oral mucosa. B ears, Nose without bleeding, airway patent, oropharynx clear Supple neck Borderline tachycardic, regular rhythm, no murmurs. Clear to auscultation and symmetric bilaterally, normal respiratory effort. Normal bowel sounds, soft, non-tender, nondistended, no guarding. Extremities without clubbing, cyanosis, or edema. No rash of generalized distribution. Skin is warm and dry. AAO x3, no cranial nerve deficits, moves all 4 extremities, no focal neurologic deficits Results - Labs CBC & Chem 7: 04/25/18 06:00 04/25/18 06:00 Laboratory Results - last 24 hr 04/25/18 13:03 MTS Gel Crossmatch See Detail - Imaging Chest X-Ray 04/24/18 00:00 CONCLUSION: Negative examination. Assessment and Plan - Plan This is a 43-year-old female with history of hypertension, anemia and uterine cancer presenting with shortness of breath Shortness of breath likely secondary to anemia-hemoglobin 6.1 and admission, transfused 2 units, hemoglobin 7.8 the patient still symptomatic and had dizziness or lightheadedness. Orthostatic check, negative. Iron panel showed iron deficiency anemia. Transfuse 1 more unit, start iron sucrose for 3 days. Rectal exam done negative, check occult blood in the STOOL If negative with no active bleeding, may follow up with GI as outpatient. Hypertension-controlled, hold off on captopril Uterine cancer- in remission, status post hysterectomy Bilateral otitis media and sinusitis-start ciprofloxacin orally and ciprofloxacin otic drops, also start oxymetazoline and Flonase. Patient has used augmentin, amoxicillin and <?> clindamycin in the past w/o relief. She used to take cipro and it works. Allegedly, she also had imaging showing otitis media and sinusitis. DVT prophylaxis: Pharmacological prophylaxis contraindicated because of possible GI bleeding. CONTINUE IRON INFUSION FOR 1 MORE DAY HOPEFULLY HOME TOMORROW AM LABS HOPE ANEMIA STAYS STABLE DW RN AND PT AND FAMILY Code Status: FULL CODE Discussed Condition With: RN AND PT AND FAMILY Discharge Planning: IF LABS STABLE TOMORROW ON ANTIBIOTICS PO AND FINISH IV IRON INFUSION WILL NEED PO IRON AT DC
[2018-04-26] MEDS: Acetaminophen 500 MG Tablet PO PRN (15:13)
[2018-04-27] MEDS: Acetaminophen 500 MG Tablet PO PRN ×2 (00:06→15:04)
[2018-04-27 06:23] LABS: Baso % (Auto) 0.3 % (0.0-2.0); Eos # (Auto) 0.2 th/mm3 (0.0-0.4); Eos % (Auto) 1.8 % (0.0-4.0); Hematocrit 30.3 % (35.0-46.0); Hemoglobin 9.5 gm/dL (11.6-15.3); Lymph # (Auto) 1.6 th/mm3 (1.0-4.8); Lymph % (Auto) 14.1 % (9.0-44.0); Mean Corpuscular HGB Conc 31.3 % (32.0-36.0); Mean Corpuscular Hemoglobin 21.7 pg (27.0-34.0); Mean Corpuscular Volume 69.4 fL (80.0-100.0); Mean Platelet Volume 7.1 fL (7.0-11.0); Mono # (Auto) 1.4 th/mm3 (0.0-0.9); Mono % (Auto) 11.9 % (0.0-8.0); Neut # (Auto) 8.3 th/mm3 (1.8-7.7); Neut % (Auto) 71.9 % (16.0-70.0); Platelet Count 455 th/mm3 (150-450); Red Blood Count 4.37 mil/mm3 (4.00-5.30); Red Cell Distribution Width 26.4 % (11.6-17.2); White Blood Count 11.5 th/mm3 (4.0-11.0)
[2018-04-27 06:37] LABS: Alanine Aminotransferase 14 U/L (10-53); Albumin 2.1 g/dL (3.4-5.0); Anion Gap 7 meq/L (5-15); Aspartate Aminotransferase 9 U/L (15-37); Blood Urea Nitrogen 10 mg/dL (7-18); Calcium 8.6 mg/dL (8.5-10.1); Carbon Dioxide 27.8 meq/L (21.0-32.0); Chloride 103 meq/L (98-107); Glomerular Filtration Rate Greater Than 89 mL/min (>89); Glucose,Random 112 mg/dL (74-106); Magnesium 2.2 mg/dL (1.5-2.5); Phosphorus 3.7 mg/dL (2.5-4.9); Potassium 4.1 meq/L (3.5-5.1); Sodium 138 meq/L (136-145)
[2018-04-27 06:47] LABS: Alkaline Phosphatase 126 U/L (45-117); Total Protein 7.4 g/dL (6.4-8.2)
[2018-04-27] MEDS: OFLOXACIN 0.3% EACH EAR SCH ×2 (09:12→09:14)
[2018-04-27] MEDS: Senna/Docusate Sodium 8.6/50 MG Tablet PO SCH (09:12)
[2018-04-27] MEDS: Ciprofloxacin 500 MG Tablet PO SCH (09:14)
--- NOTE | 2018-04-27 09:56 | P.DS ---
Date of admission: 04/24/18 05:52 Primary care physician: No Primary Care Physician Brief History from admission: This is a 43-year-old female with history of hypertension and uterine cancer presenting with headache, shortness of breath and fatigue. She is also complaining of bilateral ear pain. She has seen an ENT recently, status post direct visualization of her sinuses and told her that it was normal. She was then diagnosed with otitis media and sinusitis and placed on antibiotics without any improvement. She is also supposed to be on iron but has not been taking it. She also stopped taking her captopril for blood pressure. She says she just does not like taking any medications. She presented today after 1 month of progressive shortness of breath but it became so worse a day that she needed to go to the emergency department. She denies any nausea, vomiting, abdominal pain, hematochezia, melena or any bleeding episodes. She has uterine cancer status post hysterectomy and has been stable. Of note, she had a colonoscopy in 2014 and was allegedly normal. She does not take any over-the- counter NSAIDs. Family history is prominent for anemia of unknown etiology to her. DS: Medications - Discharge Medications Prescriptions: ciprofloxacin HCl 500 mg PO Q12HR #10 tab fluticasone 2 spray NASAL DAILY@1600 #1 bottle ofloxacin 3 drop EACH EAR BID #1 bottle DS: Summary Hospital Course: This is a 43-year-old female with history of hypertension, anemia and uterine cancer presenting with shortness of breath. To have hemoglobin of 6.1 on admission, transfused 2 units of packed red blood cells, hemoglobin went up to 7.8 but patient still symptomatic. She was transfused another unit. Workup was done, showed severe iron deficiency anemia. Rectal exam was negative. Patient was started on iron infusion. Patient was also diagnosed with bilateral otitis media and sinusitis for which she was started on ciprofloxacin orally, oxymetazoline, Flonase and otic drops. After finishing 3 doses of iron infusion, patient will be discharged with a hemoglobin of 9.5. - Time Spent with Patient Total time spent providing and/or coordinating discharge services: Greater than 30 minutes - Quality: VTE Deep Vein Thrombosis/Pulmonary Embolism Present on Admission: No Exam Vital signs: Vital Signs 04/26/18 13:09 04/26/18 15:43 04/26/18 15:46 Temperature 98.2 F Pulse Rate 68 81 Respiratory Rate 20 18 Blood Pressure 120/74 Pulse Oximetry 98 04/26/18 17:38 04/26/18 20:00 04/27/18 00:00 Temperature 98.6 F 98.1 F 99.5 F Pulse Rate 78 82 85 Respiratory Rate 20 20 20 Blood Pressure 120/60 109/61 104/62 Pulse Oximetry 96 96 98 04/27/18 04:00 04/27/18 08:00 Temperature 98.8 F 97.6 F Pulse Rate 91 H 74 Respiratory Rate 20 20 Blood Pressure 130/82 124/72 Pulse Oximetry 97 99 Intake & Output 04/26/18 04/27/18 04/27/18 18:59 06:59 18:59 Intake Total 360 / 360 450 / 450 Balance 360 / 360 450 / 450 Weight 90 kg Intake: IV 360 / 360 Venofer Inj 200 MG In NS Inj 110 / 110 100 ML @ 110 mls/hr IV.SIG Q24H JAIRON Rx#:[id number] NS Inj 250 ML @ 15 mls/hr IV. 250 / 250 SIG ONCE JAIRON Rx#:[id number] Oral 450 / 450 Other: # Voids 3 Date of Last Bowel Movement 04/25/18 04/26/18 Narrative: S> Sinusitis and ear pain better, afebrile, feels stronger, no fever or chills O> Not in distress, well-nourished, looks stated age PERRL, pink conjunctiva without injection, anicteric Nose without bleeding, airway patent, oropharynx clear Supple neck, no masses or thyromegaly, trachea midline Normal rate and regular rhythm, no murmurs gallops or rubs appreciated. Clear to auscultation and symmetric bilaterally, normal respiratory effort. Normal bowel sounds, soft, non-tender, nondistended, no guarding. Extremities without clubbing, cyanosis, or edema. No rash of generalized distribution. Skin is warm and dry. AAO x3, no cranial nerve deficits, moves all 4 extremities, no focal neurologic deficits Normal mood, appropriate affect Results Procedures completed during hospitalization: none Labs on day of discharge: Labs from last 24 hours 04/27/18 04/27/18 04/27/18 05:05 05:05 05:05 WBC RBC Hgb Hct MCV MCH MCHC RDW Plt Count MPV Prelim Diff (Auto) Neut % (Auto) Lymph % (Auto) [place] % (Auto) Eos % (Auto) Baso % (Auto) Neut # (Auto) Lymph # (Auto) [place] # (Auto) Eos # (Auto) Baso # (Auto) WBC Differential Diff Scan Differential Comment Sodium 138 Potassium 4.1 Chloride 103 Carbon Dioxide 27.8 Anion Gap 7 BUN 10 Creatinine 0.53 Estimated GFR Greater than 89 Random Glucose 112 H Hemoglobin A1c Pending Calcium 8.6 Phosphorus 3.7 Magnesium 2.2 Total Bilirubin 0.7 AST 9 L ALT 14 Alkaline Phosphatase 126 H Total Protein 7.4 Albumin 2.1 L TSH 1.550 Free T4 1.34 04/27/18 05:05 WBC 11.5 H RBC 4.37 Hgb 9.5 L Hct 30.3 L MCV 69.4 L MCH 21.7 L MCHC 31.3 L RDW 26.4 H Plt Count 455 H MPV 7.1 Prelim Diff (Auto) Slide review pending Neut % (Auto) 71.9 H Lymph % (Auto) 14.1 [place] % (Auto) 11.9 H Eos % (Auto) 1.8 Baso % (Auto) 0.3 Neut # (Auto) 8.3 H Lymph # (Auto) 1.6 Wilcox # (Auto) 1.4 H Eos # (Auto) 0.2 Baso # (Auto) 0.0 WBC Differential . Diff Scan Auto diff confirmed Differential Comment . Sodium Potassium Chloride Carbon Dioxide Anion Gap BUN Creatinine Estimated GFR Random Glucose Hemoglobin A1c Calcium Phosphorus Magnesium Total Bilirubin AST ALT Alkaline Phosphatase Total Protein Albumin TSH Free T4 - Impressions ITS Impressions Chest X-Ray 04/24/18 00:00 CONCLUSION: Negative examination. Discharge Plan - Discharge Disposition Patient Disposition: 01 Discharge Home - Discharge Condition Condition: Stable - Discharge Order Discharge Orders: Discharge Order (Routine); Ordered 04/27/18 Ordered By: Marquise Jansen - Discharge Details Anticipated Discharge Date: 04/27/18 Discharge Comment: d/c after Iron given - Physicians Team Primary Care Provider: Primary Care Juan Davidi,Samantha Attending Provider: Marquise Jansen
[2018-04-27 12:34] LABS: Hemoglobin A1c 6.2 % (4.3-6.0)
[2018-04-27] MEDS: Iron Sucrose Inj 200 MG in Sodium Chlor 0.9% Inj 100 ML IV.SIG SCH (15:30)
== END 2018-04-27 18:09 | disposition home or self-care (01) ==
LOC: N06 01:05 → NEDA 01:05 → NEPD 01:05 → NEPGCP 17:37 → N06 04-26 00:09
PROVIDERS: ADMIT Hospitalist; ATTEND Hospitalist
DX: D50.9 Iron deficiency anemia, unspecified; R06.02 Shortness of breath; R53.83 Other fatigue; R42 Dizziness and giddiness; I10 Essential (primary) hypertension; R73.9 Hyperglycemia, unspecified; H66.93 Otitis media, unspecified, bilateral; R00.0 Tachycardia, unspecified; R51 Headache; Z79.899 Other long term (current) drug therapy; Z85.42 Personal history of malignant neoplasm of other parts of uterus; K64.4 Residual hemorrhoidal skin tags